=== PATIENT | female | born 1955 | race Caucasian/White ===

== ENCOUNTER 2016-11-28 05:46 | Day surgery (SDC) | payer MEDICARE, OTHER ==
[2016-11-20 13:17] LABS: HEMATOCRIT 39.9 % (36.0-48.0); HEMOGLOBIN 13.6 g/dL (12.0-16.0)
[2016-11-20 13:41] LABS: BUN (BLOOD UREA NITROGEN) 14 MG/DL (6-23); CHLORIDE, SERUM 105 MMOL/L (96-112); CO2 (CARBON DIOXIDE) 27 MMOL/L (24-34); CREATININE 0.89 MG/DL (0.55-1.02); GFR AFRICAN AMERICAN 80 ML/MIN (>=60); GFR NON AFRICAN AMERICAN 69 ML/MIN (>=60); GLUCOSE, SERUM 106 MG/DL (60-99); POTASSIUM, SERUM 3.6 MMOL/L (3.5-5.3); SODIUM, SERUM 144 MMOL/L (135-148)
--- NOTE | ~2016-11-28 | OP ---
Record Of Operation [facility] [address] [place]. [address] NAME: MARIO BRUNO : 51 STATUS : [place] [facility] [place] PAT#: [id number] AGE: 61 ADM/REG DATE : 11/28/16 MR#: [id number] REPORT SERV DATE: 11/28/16 DICTATED BY: SAGE CAMPOS DATE: 11/28/16 REPORT STATUS : Draft TRANSCRIBED BY: MODL DATE: 11/28/16 DATE OF PROCEDURE: 11/28/2016 ANESTHESIA: General. COMPLICATIONS: None. ESTIMATED BLOOD LOSS: 50-75 mL. PREOPERATIVE DIAGNOSES: 1. Uterine prolapse. 2. Pelvic pain. 3. Vaginal vault prolapse. POSTOPERATIVE DIAGNOSES: 1. Uterine prolapse. 2. Pelvic pain. 3. Vaginal vault prolapse. OPERATION: 1. Laparoscopic-assisted vaginal hysterectomy with bilateral salpingo-oophorectomy. 2. Vaginal vault suspension. 3. Cystoscopy. PROCEDURE IN DETAIL: The patient was taken to the operating room and placed on the operating table in the [facility]. After adequate anesthesia, the patient was prepped and draped in the usual sterile fashion. Vincent and uterine manipulator were inserted. A Veress needle was inserted and abdomen was insufflated with CO2 gas. A 5 mm trocar was inserted, intraabdominal position was confirmed. Next, a 5 mm trocar was inserted in the right and left lower quadrant under direct visualization. Ureters identified and kept out of harm's way at all times. The infundibulopelvic ligaments were skeletonized, cauterized and cut with the LigaSure. Next, the broad ligaments were cauterized and cut with the LigaSure. Next, the upper portion of the uterine vessels were cauterized and cut with the LigaSure. At this point, attention was turned vaginally. The cervix was grasped with a single-tooth tenaculum and a posterior colpotomy was performed. The uterosacral ligaments were clamped, cut, and ligated with 0 Vicryl suture. Next, the uterine vessels were clamped, cut, and ligated with 0 Vicryl suture. Next, the broad ligaments were cauterized and cut with the LigaSure intact. At this point, the uterus, cervix, tubes and ovaries were removed. Next, #1 Vicryl and #1 PDS sutures were placed as high as possible to the posterior aspect of the uterosacral ligament and tied in the vaginal apex for vaginal vault suspension bilaterally. The vaginal cuff was reapproximated in transverse fashion using interrupted [id number] 0 Vicryl suture. Cystoscopy was performed. There was bilateral ureteral efflux of Pyridium dye and no damage or sutures to the bladder. Vincent was placed. A repeat look with laparoscopy was performed. Hemostasis was noted to be good. Trocars were removed. Gas was allowed to escape from the abdominal cavity. Skin was reapproximated with 4-0 Monocryl and Dermabond. The patient tolerated the procedure well and was taken to the recovery room in Record Of Operation [address] [id number] NAME: MARIO BRUNO : 51 STATUS : [place] [facility] [place] PAT#: [id number] AGE: 61 ADM/REG DATE : 11/28/16 MR#: [id number] REPORT SERV DATE: 11/28/16 DICTATED BY: SAGE CAMPOS DATE: 11/28/16 REPORT STATUS : Draft TRANSCRIBED BY: MODZacarias DATE: 11/28/16 stable condition. DENI/ELPIDIO Sage Campos M.D. / [id number] CC: Chaz Thomason M.D.
[~2016-11-28 05:46] MED LIST: ASAB PO; BACTROINT TOP; C25; CALTRA600D PO; CARDCD120 PO; MULTIPLE VIT PO; PCET PO; RYTHMOL150 MG PO; TRAVATAN OPH; VITAMIN B PO; VITAMIN C100 MG PO; VITC500 PO
[2016-11-28 14:49] LABS: BASOPHILS 0.2 %; BASOPHILS ABSOLUTE 0.02 10/3/uL (0.0-0.16); EOSINOPHILS 0.1 %; EOSINOPHILS ABSOLUTE 0.01 10/3/uL (0.0-0.53); HEMATOCRIT 38.1 % (36.0-48.0); HEMOGLOBIN 13.3 g/dL (12.0-16.0); IMMATURE GRANULOCYTES 0.2 %; IMMATURE GRANULOCYTES ABSOLUTE 0.02 10/3/uL (0.0-0.11); LYMPHOCYTES 7.2 %; MEAN CORPUSCULAR HEMOGLOB 32.4 pg (26.0-34.0); MEAN CORPUSCULAR VOLUME 92.7 fL (80-100); MEAN PLATELET VOLUME 8.8 fL (9.2-13.0); MONOCYTES 1.1 %; MONOCYTES ABSOLUTE 0.14 10/3/uL (0.21-1.20); NEUTROPHILS 91.2 %; NEUTROPHILS ABSOLUTE 11.45 10/3/uL (2.02-8.40); PLATELET COUNT 195 10/3/uL (150-400); RBC DISTRIBUTION WIDTH 12.7 % (12.0-16.0); RED CELL COUNT 4.11 10/6/uL (4.0-5.6)
[2016-11-28 14:50] LABS: MANUAL DIFF NO %; MEAN CORPUS HGB CONC 34.9 g/dL (32.0-36.0); WHITE BLOOD CELLS 12.5 10/3/uL (4.5-10.5)
[2017-06-16] MEDS ORDERED: MULTIVIT/MIN PO (15:56)
[2017-06-16] MEDS ORDERED: VITC500 PO (15:57)
[2017-06-16] MEDS ORDERED: ASAB PO (15:57)
== END 2016-11-28 19:09 | disposition home or self-care (01) ==
LOC: SDC 05:46
PROVIDERS: Obstetrics & Gynecology Gynecology
PROC: 0USG0ZZ Reposition Vagina, Open Approach (ICD-10-PCS; 2016-11-28)
PROC: 0UT9FZZ Resection of Uterus, Via Natural or Artificial Opening With Percutaneous Endoscopic Assistance (ICD-10-PCS; principal; 2016-11-28 07:15)
PROC: 0UTC7ZZ Resection of Cervix, Via Natural or Artificial Opening (ICD-10-PCS; 2016-11-28 07:15)
PROC: 0UT2FZZ Resection of Bilateral Ovaries, Via Natural or Artificial Opening With Percutaneous Endoscopic Assistance (ICD-10-PCS; 2016-11-28 07:15)
PROC: 0UT7FZZ Resection of Bilateral Fallopian Tubes, Via Natural or Artificial Opening With Percutaneous Endoscopic Assistance (ICD-10-PCS; 2016-11-28 07:15)
DX: D25.9 Leiomyoma of uterus, unspecified (principal); D27.1 Benign neoplasm of left ovary; D27.0 Benign neoplasm of right ovary; I10 Essential (primary) hypertension; Z88.0 Allergy status to penicillin; H40.9 Unspecified glaucoma; M19.90 Unspecified osteoarthritis, unspecified site; Z90.49 Acquired absence of other specified parts of digestive tract; K21.9 Gastro-esophageal reflux disease without esophagitis; N81.10 Cystocele, unspecified; N81.6 Rectocele; Z98.890 Other specified postprocedural states; Z79.899 Other long term (current) drug therapy
CPT/HCPCS: 36415; 80048; 85014; 85018; 85025; 86850; 86900; 86901; 88305; 88307; 93005; A9270-GY; J0694; J1885; J2250; J2710; J3010

== ENCOUNTER 2017-06-18 10:52 | Day surgery (SDC) | payer MEDICARE ==
[~2017-06-18] VITALS: Ht 162.6 cm; Wt 59.0 kg
--- NOTE | ~2017-06-18 | OP ---
Record Of Operation [facility] [address] [place]. [address] NAME: MARIO BRUNO : 51 STATUS : REG [facility] [place] PAT#: [id number] AGE: 61 ADM/REG DATE : 06/18/17 MR#: [id number] REPORT SERV DATE: 06/18/17 DICTATED BY: PABLO JACKSON DATE: 06/18/17 REPORT STATUS : Draft TRANSCRIBED BY: ELPIDIO DATE: 06/18/17 DATE OF PROCEDURE: 06/18/2017 PREPROCEDURE DIAGNOSIS: Grade 3 internal hemorrhoids with partial thickness rectal prolapse. POSTPROCEDURE DIAGNOSIS: Grade 3 internal hemorrhoids with partial thickness rectal prolapse. PROCEDURE: PPH, procedure for prolapse and hemorrhoids, performed with a [employer] Stapler 4.8 mm in size. DESCRIPTION OF PROCEDURE: The patient was taken to the operating room, induced under general anesthesia, placed into the prone germán-knife position, prepped and draped in the usual sterile fashion. A pudendal nerve block was placed using TAP block solution bilaterally. Then the anus was dilated using the obturator followed by the clear plastic retractor and switching to the fenestrated obturator. A pursestring suture of 2-0 Prolene was placed circumferentially 4 cm from the dentate line. The rectal prolapse was most evident on the anterior rectal wall. Once circumferential pursestring was created, the anvil was placed through the pursestring. This was tied taut around the shaft of the anvil, brought through the middle hole in the anvil, and tied again to the anvil. The anvil was then secured to the stapler. The stapler was turned until the green marker was in the green window and held for 60 seconds. Then the safety was removed, fired and held for 60 seconds. After a finger dipped in Betadine paint, it was used to palpate the posterior vaginal wall and make sure that there was no crimping. The stapler was held for 60 seconds and turned 1 full turn, brought out through the anus. There was 2 cm thickness of rectal mucosa which was removed circumferentially. This was passed off the table and sent to pathology. Hemostasis was checked using the fenestrated obturator and irrigation in 3 locations. [id number] 3-0 Vicryl stitches were placed. Then, the two stay sutures were cut and the retractor removed. The patient was cleaned and dried, followed by two 4x4s, peripad, and mesh panties. She tolerated the procedure well. EDILBERTO/ELPIDIO Pablo Jackson M.D. / [id number] CC: Chaz Mcmillan M.D. Joseph Portera, M.D.
[~2017-06-18 10:52] MED LIST changes: +MULTIVIT/MIN PO
== END 2017-06-18 16:06 | disposition home or self-care (01) ==
LOC: SDC 10:52
PROVIDERS: Surgery
PROC: 06LY0ZC Occlusion of Hemorrhoidal Plexus, Open Approach (ICD-10-PCS; principal; 2017-06-18 12:15)
DX: K64.2 Third degree hemorrhoids (principal); K62.3 Rectal prolapse; I10 Essential (primary) hypertension; Z88.0 Allergy status to penicillin; Z88.8 Allergy status to other drugs, medicaments and biological substances; Z79.899 Other long term (current) drug therapy; Z98.890 Other specified postprocedural states; Z90.49 Acquired absence of other specified parts of digestive tract; Z90.710 Acquired absence of both cervix and uterus
CPT/HCPCS: 80048; 85014; 85018; 88304; 93005; A9270-GY; J1885; J2250; J2405; J2710; J2795; J3010